=== PATIENT | female | born 1960 | race Caucasian/White ===

== ENCOUNTER → 2016-11-22 | Outpatient (CLI) | payer BC, OTHER ==
[~2016-11-22] VITALS: Ht 165.1 cm; Wt 78.9 kg
[~2016-11-22] MED LIST: AMBIEN CR12.5 MG PO; AMITRIPTYLINE H10 M3 PO; ASPIR 8181 MG PO; DEXTROAMPHETAMIN5 M2 PO; EFFEXOR XR75 MG PO; FLECTOR PATCH1 EA TOP; FLEXERIL PO; LEVOXYL100 MCG PO; LODINE XL500 MG PO; NORCO 5-325 TA1 EACH PO; OSPHENA60 MG PO; PROTONIX 20 MG20 MG PO; SKELAXIN 800 M800 M1 PO; VITAMIN B COMP1 EACH PO; XANAX XR2 MG PO; ZETIA10 MG PO
--- NOTE | ~2016-11-22 | HPC ---
[facility] [address] [place] [address] PAIN MANAGEMENT CONSULTATION Name: JESSICA MAYFIELD Room #: REG ANUM Staci.#: [id number] Admission: 11/22/16 Attend Phys: Ye Arredondo MD Discharge: Date of : 64 Report #: [id number] THIS REPORT FOR: //name// CC: Yoseph Robledo DATE OF SERVICE: 11/22/2016 CHIEF COMPLAINT: Severe myofascial pain. HISTORY OF PRESENT ILLNESS: The patient returns to pain clinic today complaining bitterly of pain in her upper back. I have previously in the past treated her for myofascial pain with trigger points, which she said were helpful. Pain has been off and on for the last 5-6 years. It should be noted that early on in her visit, I noted that she was anxious and seemed distressed. She admitted to me at that point that her daughter committed suicide 2 years ago. She has understandably been an emotional ____ since that point in time. She is not sleeping well. 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 She is smoking more cigarettes. I offered my support and prayers. She is seeing a counselor and is on medications, which were reviewed. In light of that history, it should be noted that she has burning, aching, stabbing and throbbing throughout her upper back, shoulder blades that wraps underneath the scapula. She has some radiating pain that wraps around to the front as well. It is worsened by all arm movements. She has difficulty with repetitive actions. Medication has helped including Skelaxin, cyclobenzaprine along with pain medications. She uses all the descriptors on the chart described her continuous steady, constant pain at a 10/10 level. ALLERGIES: REGLAN AND SOMA. MEDICATIONS: Xanax, Endocet, pantoprazole, hydrocodone, cyclobenzaprine along with Skelaxin, ____, aspirin, vitamin, thyroid, alprazolam 2 mg p.r.n. for severe anxiety associated with her grieving and venlafaxine 75 mg once daily. PAST MEDICAL HISTORY: Positive for severe anxiety, depression, insomnia, thyroid problems. PAST SURGICAL HISTORY: Bilateral rotator cuff surgery, ulnar nerve transposition, cholecystectomy, hysterectomy and a history of fractured ankle. REVIEW OF SYSTEMS: Positive for weight gain, fatigue, weakness, headaches, blurred vision, chest pain, asthma, wheezing, constipation, frequent urination, nocturia, lightheadedness, dizziness. She describes memory loss, confusion, [address] [address] PAIN MANAGEMENT CONSULTATION Name: JESSICA MAYFIELD DAVID Room #: REG Lola Lopez#: [id number] Admission: 11/22/16 Attend Phys: Ye Arredondo MD Discharge: Date of : 64 Report #: [id number] nervousness, depression and insomnia. PHYSICAL EXAMINATION: GENERAL: She appears in some distress and anxious, tearful throughout her visit, describing her daughter's suicide. HEENT: Examination of the head is normal. Pupils are equal, round, reactive to light. Mucous membranes are moist. NECK: Supple, but she has tenderness throughout the neck. MUSCULOSKELETAL: She has a lot of tenderness in the trapezius and along the paravertebral muscles extending into the rhomboids bilaterally as well underneath the scapula. Pain is mostly medial and inferior to the scapula. She denies any extremity pain. Gait is adequate with no abnormal features. IMPRESSION: 1. Myofascial pain, upper back. 2. Severe depression and anxiety, which is situational related to daughter's suicide. Complicated grief. 3. History of rotator cuff surgery. RECOMMENDATIONS: Trigger point injections. PROCEDURE: Skin was prepped with ChloraPrep widely. A 27-gauge needle was used to perform multiple injections into the trapezius, rhomboids and paravertebral muscle groups. A total of 3 muscle groups on each side were identified with multiple injections into each totalling about 18 mL of 0.25% bupivacaine mixed with 2 mg per mL of triamcinolone. Massage was performed after the trigger points. She tolerated it well. Pain score had diminished from a 10 to a 2 at discharge. We will see her back on an as-needed basis for further trigger point. I have offered again emotional support and prayers for her terrible loss and encouraged her to continue with her counselor. By: [id number] Ye Arredondo MD /nt
[2016-11-22 14:57] VITALS: BP 138/74
== END ==
LOC: PAIN 13:58
DX: M79.1 Myalgia (principal); F41.9 Anxiety disorder, unspecified; F32.9 Major depressive disorder, single episode, unspecified; E07.89 Other specified disorders of thyroid; G47.09 Other insomnia; Z88.8 Allergy status to other drugs, medicaments and biological substances; Z79.82 Long term (current) use of aspirin; Z79.899 Other long term (current) drug therapy